=== PATIENT | male | born 1990 | race Caucasian/White ===

== ENCOUNTER 2017-06-16 11:14 | Emergency (ER) | payer OTHER | END 2017-06-16 11:28 | disposition left against medical advice (07) | LOC: UCCORT 11:14 | DX: M25.519 Pain in unspecified shoulder (principal); M54.2 Cervicalgia; Z53.21 Procedure and treatment not carried out due to patient leaving prior to being seen by health care provider ==

== ENCOUNTER 2018-05-03 21:09 | Emergency (ER) | payer OTHER ==
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
--- NOTE | 2018-05-03 22:41 | RAD ---
EXAM: CT Cervical Spine Without Intravenous Contrast EXAM DATE/TIME: 05/03/2018 10:02 PM CLINICAL HISTORY: 27 years old, male; Signs and symptoms; Other: C spine tenderness S/P fall TECHNIQUE: Axial computed tomography images of the cervical spine without intravenous contrast. All CT scans at this facility use at least one of these dose optimization techniques: automated exposure control; mA and/or kV adjustment per patient size (includes targeted exams where dose is matched to clinical indication); or iterative reconstruction. Coronal and sagittal reformatted images were created and reviewed. COMPARISON: No relevant prior studies available. FINDINGS: Vertebrae: No acute cervical spine fracture or subluxation. The cervical lordosis is mildly reversed. The facet alignment is preserved bilaterally. The occipital condyles and C1-C2 articulations appear intact. Discs/Spinal canal/Neural foramina: Spondylosis is visualized at C4-5 and C5-6. Mild narrowing of the thecal sac is visualized at C5-6, with mild bilateral neural foraminal narrowing. There is a decrease in disc height at C5-6, with endplate sclerosis. Soft tissues: There is mild swelling of the subcutaneous tissues posterior to the cervical spine. Lungs: No pneumothorax, as visualized. IMPRESSION: 1. No acute cervical spine fracture or subluxation. 2. The cervical lordosis is mildly reversed. 3. Spondylosis is visualized at C4-5 and C5-6. Mild narrowing of the thecal sac is visualized at C5-6, with mild bilateral neural foraminal narrowing. 4. There is mild swelling of the subcutaneous tissues posterior to the cervical spine. Mild disc bulging is visualized at C4-5. To contact [facility] with a general question: [facility] - [phone] For direct physician to physician contact: Physician Hotline - [phone] [facility] ([facility] Facility ID #[id number])
[2018-05-03] MEDS ORDERED: Dexamethasone IV* 4 MG/ML 1 ML (4 MG) IM ONE (23:19)
[2018-05-03] MEDS ORDERED: Ketorolac INJ* 60 MG/2 ML VIAL IM ONE (23:19)
[2018-05-03 23:54] VITALS: BP 140/88
== END 2018-05-03 23:54 | disposition home or self-care (01) ==
LOC: ED 21:09
DX: M51.24 Other intervertebral disc displacement, thoracic region (principal); M25.512 Pain in left shoulder; M54.2 Cervicalgia
CPT/HCPCS: 72125; 96372; 99283; J1100; J1885

== ENCOUNTER 2018-11-07 23:49 | Emergency (ER) | payer BC, OTHER ==
[2018-11-08] MEDS ORDERED: Tetan/Diph/Pertus SYR(Tdap)* 0.5 ML SYR(BOOSTRIX) use SYR IM ONE (02:01)
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
[2018-11-08 02:46] VITALS: BP 127/90
== END 2018-11-08 02:45 | disposition home or self-care (01) ==
LOC: ED 23:49
DX: S50.871A Other superficial bite of right forearm, initial encounter (principal); W50.3XXA Accidental bite by another person, initial encounter; Y99.0 Civilian activity done for income or pay; Z86.19 Personal history of other infectious and parasitic diseases
CPT/HCPCS: 36415; 86703; 90471; 90715; 99282

== ENCOUNTER → 2019-08-28 15:32 | Emergency (ER) | payer OTHER ==
[~2019-08-28 15:32] MED LIST: Ketorolac INJ* 30 MG/ML 1 ML VIAL IM ONE
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
[2019-08-28 16:29] VITALS: BP 130/100
== END | disposition home or self-care (01) ==
LOC: ED 15:32
DX: M54.2 Cervicalgia (principal); Y09 Assault by unspecified means; Z87.891 Personal history of nicotine dependence
CPT/HCPCS: 96372; 99282; J1885